=== PATIENT | male | born 1970 | race Caucasian/White ===

== ENCOUNTER 2016-12-10 15:52 | Emergency (ER) | payer BC ==
[2016-12-10] MEDS ORDERED: Acetaminophen/HYDROcodone 325-5 MG Tab PO ONE (16:26)
[2016-12-10] MEDS ORDERED: Amoxicillin/Clavulanate K 500-125 MG Tab PO ONE (16:26)
[2016-12-10 17:02] VITALS: BP 155/100
--- NOTE | 2016-12-12 13:37 | ER ---
DATE SEEN: 12/10/2016 TIME SEEN: The patient was seen at 1600. HISTORY OF PRESENT ILLNESS: This 46-year-old vela comes in with history of right ear discomfort. He had several ear infections. He has had previous nasal surgery with turbinate/polyp removed from left naris. He has been seen by ENT specialist at [place]. He has never been diagnosed with a cholesteatoma. Today's hearing is slightly decreased in his right ear. He has moderate discomfort described as 8/10 discomfort. It has been going on since last night. Denies fever. Denies neck stiffness, sore throat, cough, or nasal congestion. He is not a smoker. He denies having seasonal allergies, but he may have not paid attention to a possible diagnosis of seasonal allergies. Medications, none. Diabetes, none. Heart disease and high blood pressure, none. He is overweight. No other serious surgery except for the nasal surgery, left nasal turbinate. He has never had PE tubes placed. He has never had operating microscope look in his right ear. PHYSICAL EXAMINATION: VITAL SIGNS: Blood pressure 169/97, heart rate 77, respirations 18, oxygen saturation 100%, and temperature is 36.8 degrees centigrade. GENERAL: Alert, overweight man, unshaven, who is well kempt, in mild distress. He is very stoic. HEENT: PERRLA intact. Pharynx without abnormality. No erythema. No tonsillar hypertrophy. Nares, left naris is almost 90% closed and the right is 60% patent. He does not have denasal speech. No maxillary sinus tenderness. No frontal sinus or ethmoid sinus tenderness. No cervical adenopathy, thyromegaly, or masses in neck. Left TM is visible, and the external canal is normal size. He has mild white TM scarring. No fluid level demonstrated. Right external canal is 90% closed by dermal fold. It is very difficult to see his TM throught 5% to 10% of the opening of the right external canal, and the external canal is not erythematous or tender. There is no TM erythema but is white with moderate scarring. I cannot tell if the TM is retracted. LUNGS: Clear to auscultation without rales, rhonchi, or wheezes. HEART: S1, S2. No murmur. No irregular rate or rhythm. ABDOMEN: Increased abdominal girth. No hepatosplenomegaly. EXTREMITIES: Without edema. ASSESSMENT: 1. The patient has multiple comorbidities involving discomfort in his ear. 2. He does not appear to have an otitis media, but he claims he has always used Augmentin "to treat his ear infections". 3. No evidence for otitis externa of the right ear. 4. The external canal is 95% closed, so that may predispose the proximal canal to increased moisture and potential bacterial nidus for infection. There is no suggestion of infection or otorrhea. No foul odor. 5. He has left nasal turbinate swelling secondary to a recurrence of polyp and/or persistence of allergies. 6. He may have seasonal allergies and/or allergies from his work. 7. He may have eustachian tube dysfunction. 8. Percussion of the mastoid did not result in mastoiditis or pain that would suggest mastoiditis. PLAN: 1. Treat empirically because there is 8/10 pain. He has Vicodin, can use 1 tablet tonight after he gets home. To decrease the pain, he has 8 tablets dispensed. 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 He must be activity free for at least 6 to 8 hours after he has taken the Vicodin. 2. He is going to get Augmentin, even though I did not see any sign of infection. There may be eustachian tube dysfunction causing inflammatory process. 3. He may have allergies that have not declared themselves. He has an option to use [id number] Soraida, Zyrtec, or Claritin to take as directed. The presumed eustachian tube dysfunction might be helped by using Sudafed. 4. Follow up with his doctor in a week and/or follow up with his ENT specialist for further evaluation and treatment. He is being treated expectantly with the following medicines that perhaps may diminish the symptoms but may not resolve the anatomically abnormal narrow right ear canal. He has had a PE tube placed in his left ear. He states that the ENT specialist has never been able to get a PE tube placed in his right ear because they cannot get at the ear, which suggests the right ear canal has always been narrowed. /[id number] [place]
== END 2016-12-10 16:55 | disposition home or self-care (01) ==
LOC: FB.ED 15:52
DX: H92.01 Otalgia, right ear (principal); J33.8 Other polyp of sinus
CPT/HCPCS: 99283; A9270-GY